=== PATIENT | female | born 1990 | race Caucasian/White ===

== ENCOUNTER 2017-03-31 18:26 | Emergency (ER) | payer OTHER ==
[~2017-03-31] VITALS: Ht 160 cm; Wt 70.0 kg
[~2017-03-31 18:26] MED LIST: AZAT50TA35 PO; CHLO25CA10 PO; PHEN-873 PO; PRED50TA PO; PRED5TAB PO
[2017-03-31 18:54] LABS: BASOPHILS % (AUTO) 0.4 % (0-1); EOSINOPHILS # (AUTO) 0.4 X10'3 (0-0.9); EOSINOPHILS % (AUTO) 3.8 % (0-6); HEMATOCRIT 34.1 % (35.0-45.0); HEMOGLOBIN 11.4 g/dl (12.0-16.0); LYMPHOCYTES # (AUTO) 2.1 X10'3 (1.1-4.8); MEAN CORPUSCULAR HEMOGLOBIN 27.6 PG (27.0-31.0); MEAN CORPUSCULAR HGB CONC 33.5 % (33.0-36.5); MEAN CORPUSCULAR VOLUME 82.6 FL (78-98); MEAN PLATELET VOLUME 7.1 FL (7.4-10.4); MONOCYTES # (AUTO) 0.7 X10'3 (0-0.9); MONOCYTES % (AUTO) 6.8 % (2-12); NEUTROPHILS # (AUTO) 7.2 X10'3 (1.8-7.7); PLATELET COUNT 397 X10'3 (140-440); RED BLOOD COUNT 4.13 X10'6 (4.20-5.60); RED CELL DISTRIBUTION WIDTH 15.4 % (11.5-14.5); WHITE BLOOD COUNT 10.4 X10'3 (4.5-11.0)
[2017-03-31 19:05] LABS: PROTHROMBIN TIME 10.1 SECONDS (9.0-12.0)
[2017-03-31 19:10] LABS: CLARITY,URINE Clear (Clear); COLOR,URINE Dark Yellow (Yellow); GLUCOSE, URINE Negative (Neg); KETONES,URINE Negative (Neg); LEUKOCYTE ESTERASE ,URINE Trace (Neg); NITRITES, URINE Negative (Neg); OCCULT BLOOD,URINE Negative (Neg); PROTEIN,URINE Negative (Neg)
[2017-03-31 19:11] LABS: ALANINE AMINOTRANSFERASE 28 U/L (12-78); ALBUMIN/GLOBULIN RATIO 0.7 (1.1-1.5); ALKALINE PHOSPHATASE 87 IU/L (46-116); ANION GAP 8 (8-16); ASPARTATE AMINO TRANSFERASE 13 U/L (10-37); BILIRUBIN,TOTAL 0.2 MG/DL (0.1-1.0); BLOOD UREA NITROGEN 6 MG/DL (7-18); BUN/CREATININE RATIO 8.6 (6.6-38.0); CALCIUM 8.9 MG/DL (8.5-10.1); CHLORIDE 106 MMOL/L (99-107); GLUCOSE 124 MG/DL (70-104); POTASSIUM 3.4 MMOL/L (3.5-5.1); SODIUM 140 MMOL/L (135-145); TOTAL CARBON DIOXIDE 25.8 MMOL/L (24-32); TOTAL PROTEIN 7.6 G/DL (6.4-8.2); eGFR > 90 ML/MIN
[2017-03-31 19:14] LABS: UA COLLECTION TYPE CLN CATCH MIDSTREAM
[2017-03-31] MEDS ORDERED: metoclopramide 5 mg/ml inj IV ONE (19:20)
[2017-03-31] MEDS ORDERED: normal saline 1000ML IV soln IVB ONE ×2 (19:20)
[2017-03-31] MEDS ORDERED: diphenhydrAMINE 50 mg/ml inj IV ONE (19:20)
[2017-03-31] MEDS ORDERED: glycopyrrolate 0.2mg/ml inj IV ONE (19:20)
[2017-03-31] MEDS ORDERED: LORazepam 2 mg/ml vial IV ONE (19:20)
[2017-03-31 19:27] LABS: BACTERIA,URINE 1+ /HPF (Neg); MUCUS STRANDS MANY /LPF (Neg); RBC,URINE 0-2 /HPF (0-2); SQUAMOUS EPITHELIAL CELL,UR MODERATE /LPF (FEW)
[2017-03-31 19:35] LABS: LIPASE 127 U/L (73-393)
[2017-03-31] MEDS: HYDROmorphone 1 mg/ml syringe IV PRN ×2 (19:39→20:26)
[2017-03-31 20:32] VITALS: BP 110/62
== END 2017-03-31 20:33 | disposition home or self-care (01) ==
LOC: ER 18:27
DX: R10.11 Right upper quadrant pain (principal); F17.210 Nicotine dependence, cigarettes, uncomplicated; Z90.49 Acquired absence of other specified parts of digestive tract; G89.29 Other chronic pain
CPT/HCPCS: 36415; 80053; 81001; 85025; 85610; 87088; 96361; 96374; 96375; 96376; 99285; J1170; J1200; J2060; J2765; J3490; J7030; 83690

== ENCOUNTER 2017-05-21 22:43 | Emergency (ER) | payer BC, OTHER ==
[~2017-05-21] VITALS: Ht 157.5 cm; Wt 68.2 kg
[2017-05-21 23:11] LABS: BASOPHILS # (AUTO) 0.1 X10'3 (0-0.2); BASOPHILS % (AUTO) 0.8 % (0-1); EOSINOPHILS # (AUTO) 0.2 X10'3 (0-0.9); EOSINOPHILS % (AUTO) 2.7 % (0-6); HEMATOCRIT 34.4 % (35.0-45.0); HEMOGLOBIN 11.8 g/dl (12.0-16.0); LYMPHOCYTES # (AUTO) 2.4 X10'3 (1.1-4.8); LYMPHOCYTES % (AUTO) 28.9 % (21-51); MEAN CORPUSCULAR HEMOGLOBIN 27.3 PG (27.0-31.0); MEAN CORPUSCULAR HGB CONC 34.2 % (33.0-36.5); MEAN CORPUSCULAR VOLUME 79.8 FL (78-98); MEAN PLATELET VOLUME 7.3 FL (7.4-10.4); MONOCYTES # (AUTO) 0.9 X10'3 (0-0.9); MONOCYTES % (AUTO) 10.5 % (2-12); NEUTROPHILS # (AUTO) 4.7 X10'3 (1.8-7.7); NEUTROPHILS % (AUTO) 57.1 % (42-75); PLATELET COUNT 323 X10'3 (140-440); RED BLOOD COUNT 4.31 X10'6 (4.20-5.60); RED CELL DISTRIBUTION WIDTH 15.1 % (11.5-14.5); WHITE BLOOD COUNT 8.2 X10'3 (4.5-11.0)
[2017-05-21 23:22] LABS: ALANINE AMINOTRANSFERASE 32 U/L (12-78); ALBUMIN/GLOBULIN RATIO 0.6 (1.1-1.5); ALKALINE PHOSPHATASE 81 IU/L (46-116); AMYLASE 34 U/L (25-115); ANION GAP 10 (8-16); ASPARTATE AMINO TRANSFERASE 16 U/L (10-37); BILIRUBIN,TOTAL 0.1 MG/DL (0.1-1.0); BLOOD UREA NITROGEN 7 MG/DL (7-18); BUN/CREATININE RATIO 9.6 (6.6-38.0); CALCIUM 8.8 MG/DL (8.5-10.1); CHLORIDE 105 MMOL/L (99-107); CREATININE 0.73 MG/DL (0.40-0.90); GLUCOSE 99 MG/DL (70-104); LIPASE 192 U/L (73-393); POTASSIUM 3.6 MMOL/L (3.5-5.1); SODIUM 142 MMOL/L (135-145); TOTAL CARBON DIOXIDE 27.2 MMOL/L (24-32); TOTAL PROTEIN 7.8 G/DL (6.4-8.2); eGFR > 90 ML/MIN
[2017-05-21 23:55] LABS: URINE HCG NEGATIVE (NEG)
[2017-05-21 23:59] LABS: UA COLLECTION TYPE CLN CATCH MIDSTREAM
[2017-05-22] LABS: CLARITY,URINE SLIGHTLY CLOUDY (Clear); COLOR,URINE YELLOW (Yellow); GLUCOSE, URINE NEGATIVE (Neg); KETONES,URINE NEGATIVE (Neg); LEUKOCYTE ESTERASE ,URINE NEGATIVE (Neg); NITRITES, URINE NEGATIVE (Neg); OCCULT BLOOD,URINE TRACE-INTACT (Neg); PH,URINE 5.5 (4.8-8.0); PROTEIN,URINE NEGATIVE (Neg); UROBILINOGEN,URINE 0.2 E.U/dL (0.2-1.0)
[2017-05-22 00:10] LABS: BACTERIA,URINE 1+ /HPF (Neg); MUCUS STRANDS MANY /LPF (Neg); RBC,URINE 0-2 /HPF (0-2); SQUAMOUS EPITHELIAL CELL,UR MANY /LPF (FEW); WBC,URINE 20-30 /HPF (0-4)
[2017-05-22] MEDS ORDERED: morphine 4 MG/ML inj SYRINge IV ONE ×2 (00:40→01:50)
[2017-05-22] MEDS ORDERED: normal saline 1000ML IV soln IVB ONE (00:40)
[2017-05-22] MEDS ORDERED: ondansetron/PF 4mg/2ml inj IV ONE (00:40)
[2017-05-22] MEDS ORDERED: dexamethasone 4mg tablet PO ONE (02:20)
[2017-05-22] MEDS ORDERED: HYDR-3965 PO (02:23)
[2017-05-22] MEDS ORDERED: ONDA4TAB9 PO (02:23)
[2017-05-22] MEDS ORDERED: PRED5TAB PO (02:23)
[2017-05-22 02:44] VITALS: BP 107/61
== END 2017-05-22 02:45 | disposition home or self-care (01) ==
LOC: ER 22:44
DX: R10.13 Epigastric pain (principal); R11.10 Vomiting, unspecified; G89.29 Other chronic pain; Z79.899 Other long term (current) drug therapy
CPT/HCPCS: 36415; 76700; 80053; 81001; 81025; 82150; 83690; 85025; 85610; 96361; 96374; 96375; 99285; J2270; J2405; J7030; 81003

== ENCOUNTER 2017-07-28 23:55 | Emergency (ER) | payer BC ==
[~2017-07-28] VITALS: Ht 157.5 cm; Wt 72.0 kg
[2017-07-29 00:19] VITALS: BP 141/62
== END 2017-07-29 00:59 | disposition home or self-care (01) ==
LOC: ER 23:56
DX: M79.674 Pain in right toe(s) (principal); G89.29 Other chronic pain; Z90.49 Acquired absence of other specified parts of digestive tract; Z91.018 Allergy to other foods; Z79.899 Other long term (current) drug therapy; W23.0XXA Caught, crushed, jammed, or pinched between moving objects, initial encounter; Y93.89 Activity, other specified; Y92.89 Other specified places as the place of occurrence of the external cause; Y99.8 Other external cause status
CPT/HCPCS: 73660; 99284; L3260

== ENCOUNTER 2017-08-18 17:46 | Emergency (ER) | payer BC ==
[~2017-08-18] VITALS: Ht 157.5 cm; Wt 68.8 kg
[2017-08-18 18:47] LABS: BASOPHILS % (AUTO) 0.2 % (0-1); EOSINOPHILS # (AUTO) 0.3 X10'3 (0-0.9); EOSINOPHILS % (AUTO) 1.8 % (0-6); HEMATOCRIT 35.4 % (35.0-45.0); HEMOGLOBIN 11.9 g/dl (12.0-16.0); LYMPHOCYTES # (AUTO) 1.7 X10'3 (1.1-4.8); LYMPHOCYTES % (AUTO) 10.2 % (21-51); MEAN CORPUSCULAR HEMOGLOBIN 26.6 PG (27.0-31.0); MEAN CORPUSCULAR HGB CONC 33.7 % (33.0-36.5); MEAN CORPUSCULAR VOLUME 79.1 FL (78-98); MEAN PLATELET VOLUME 7.2 FL (7.4-10.4); MONOCYTES # (AUTO) 1.2 X10'3 (0-0.9); MONOCYTES % (AUTO) 7.6 % (2-12); NEUTROPHILS # (AUTO) 13.2 X10'3 (1.8-7.7); NEUTROPHILS % (AUTO) 80.2 % (42-75); PLATELET COUNT 442 X10'3 (140-440); RED BLOOD COUNT 4.47 X10'6 (4.20-5.60); RED CELL DISTRIBUTION WIDTH 16.3 % (11.5-14.5); WHITE BLOOD COUNT 16.5 X10'3 (4.5-11.0)
[2017-08-18 18:56] LABS: PROTHROMBIN TIME 10.2 SECONDS (9.0-12.0)
[2017-08-18 19:03] LABS: ALANINE AMINOTRANSFERASE 14 U/L (12-78); ALBUMIN/GLOBULIN RATIO 0.6 (1.1-1.5); ALKALINE PHOSPHATASE 88 IU/L (46-116); ANION GAP 9 (8-16); ASPARTATE AMINO TRANSFERASE 12 U/L (10-37); BILIRUBIN,TOTAL 0.2 MG/DL (0.1-1.0); BLOOD UREA NITROGEN 9 MG/DL (7-18); BUN/CREATININE RATIO 12.9 (6.6-38.0); CHLORIDE 106 MMOL/L (99-107); GLUCOSE 97 MG/DL (70-104); POTASSIUM 3.1 MMOL/L (3.5-5.1); SODIUM 143 MMOL/L (135-145); TOTAL CARBON DIOXIDE 28.2 MMOL/L (24-32); TOTAL PROTEIN 7.8 G/DL (6.4-8.2); eGFR > 90 ML/MIN
[2017-08-18 19:42] LABS: URINE HCG NEGATIVE (NEG)
[2017-08-18 19:48] LABS: CLARITY,URINE CLOUDY (Clear); GLUCOSE, URINE NEGATIVE (Neg); KETONES,URINE TRACE mg/dl (Neg); LEUKOCYTE ESTERASE ,URINE NEGATIVE (Neg); NITRITES, URINE NEGATIVE (Neg); OCCULT BLOOD,URINE NEGATIVE (Neg); PROTEIN,URINE TRACE mg/dl (Neg); UROBILINOGEN,URINE 0.2 E.U/dL (0.2-1.0)
[2017-08-18 19:54] LABS: COLOR,URINE DARK YELLOW (Yellow); UA COLLECTION TYPE CLN CATCH MIDSTREAM
[2017-08-18 19:56] LABS: BACTERIA,URINE 1+ /HPF (Neg); CAL OXALATE CRYSTALS 3+ /HPF (NEGATIVE); MUCUS STRANDS MANY /LPF (Neg); RBC,URINE NONE SEEN /HPF (0-2); SQUAMOUS EPITHELIAL CELL,UR MODERATE /LPF (FEW); WBC CLUMPS,URINE MODERATE /HPF (NEGATIVE)
[2017-08-18] MEDS ORDERED: morphine 4 MG/ML inj SYRINge IV ONE (20:20)
[2017-08-18] MEDS ORDERED: ondansetron/PF 4mg/2ml inj IV ONE (20:20)
[2017-08-18] MEDS ORDERED: methylPREDNISolone sod succ 125mg/2ml vial IV ONE (20:20)
[2017-08-18] MEDS ORDERED: normal saline 1000ML IV soln IVB ONE (20:20)
[2017-08-18 20:39] LABS: LIPASE 98 U/L (73-393)
[2017-08-18] MEDS ORDERED: iohexol 300mg/ml 100ml inj. ONE (20:49)
[2017-08-18] MEDS ORDERED: fentaNYL/PF 50MCG/1 ML 2ML syringe IV ONE (21:15)
[2017-08-18] MEDS ORDERED: potassium Cl 20 mEq SR tablet PO STA (21:55)
[2017-08-18] MEDS ORDERED: ciprofloxacin 250mg tablet PO ONE (22:00)
[2017-08-18] MEDS ORDERED: HYDROcodone/acetaminophen 10/325mg tab PO ONE (22:00)
[2017-08-18] MEDS ORDERED: metroNIDAZOLE 500mg tablet PO ONE (22:00)
[2017-08-18] MEDS ORDERED: HYDR-3965 PO (22:01)
[2017-08-18] MEDS ORDERED: CIPR-259 PO (22:01)
[2017-08-18] MEDS ORDERED: POTA20TA19 PO (22:01)
[2017-08-18] MEDS ORDERED: METR500T PO (22:01)
[2017-08-18 22:12] VITALS: BP 107/70
== END 2017-08-18 22:40 | disposition home or self-care (01) ==
LOC: ER 17:46
DX: E87.6 Hypokalemia (principal); K52.9 Noninfective gastroenteritis and colitis, unspecified; N39.0 Urinary tract infection, site not specified; F17.200 Nicotine dependence, unspecified, uncomplicated; G89.29 Other chronic pain; Z90.49 Acquired absence of other specified parts of digestive tract; Z79.899 Other long term (current) drug therapy
CPT/HCPCS: 36415; 74176; 80053; 81001; 81025; 83690; 85025; 85610; 85651; 87088; 96361; 96374; 96375; 99285; J2405; J2930; J3010; J3490; J7030; Q9967

== ENCOUNTER 2017-10-02 19:30 | Inpatient (IN) | payer BC ==
[~2017-10-02] VITALS: Ht 157.5 cm; Wt 67.0 kg
[2017-10-02 21:27] LABS: BASOPHILS % (AUTO) 0.3 % (0-1); EOSINOPHILS # (AUTO) 0.2 X10'3 (0-0.9); EOSINOPHILS % (AUTO) 2.1 % (0-6); HEMATOCRIT 34.8 % (35.0-45.0); HEMOGLOBIN 11.7 g/dl (12.0-16.0); LYMPHOCYTES # (AUTO) 1.2 X10'3 (1.1-4.8); LYMPHOCYTES % (AUTO) 10.6 % (21-51); MEAN CORPUSCULAR HEMOGLOBIN 26.6 PG (27.0-31.0); MEAN CORPUSCULAR HGB CONC 33.7 % (33.0-36.5); MEAN PLATELET VOLUME 7.1 FL (7.4-10.4); MONOCYTES # (AUTO) 0.7 X10'3 (0-0.9); MONOCYTES % (AUTO) 6.2 % (2-12); NEUTROPHILS # (AUTO) 9.3 X10'3 (1.8-7.7); NEUTROPHILS % (AUTO) 80.8 % (42-75); PLATELET COUNT 398 X10'3 (140-440); RED BLOOD COUNT 4.41 X10'6 (4.20-5.60); RED CELL DISTRIBUTION WIDTH 15.1 % (11.5-14.5); WHITE BLOOD COUNT 11.5 X10'3 (4.5-11.0)
[2017-10-02] MEDS ORDERED: normal saline 1000ml 1,000 ML IV ONE (21:40)
[2017-10-02] MEDS ORDERED: ondansetron/PF 4mg/2ml inj IV ONE (21:40)
[2017-10-02 21:45] LABS: ALANINE AMINOTRANSFERASE 20 U/L (12-78); ALBUMIN/GLOBULIN RATIO 0.6 (1.1-1.5); ALKALINE PHOSPHATASE 75 IU/L (46-116); ANION GAP 10 (8-16); ASPARTATE AMINO TRANSFERASE 10 U/L (10-37); BILIRUBIN,TOTAL 0.2 MG/DL (0.1-1.0); BLOOD UREA NITROGEN 5 MG/DL (7-18); BUN/CREATININE RATIO 7.8 (6.6-38.0); CALCIUM 8.6 MG/DL (8.5-10.1); CHLORIDE 107 MMOL/L (99-107); CREATININE 0.64 MG/DL (0.40-0.90); GLUCOSE 89 MG/DL (70-104); SODIUM 143 MMOL/L (135-145); TOTAL CARBON DIOXIDE 25.9 MMOL/L (24-32); TOTAL PROTEIN 7.9 G/DL (6.4-8.2); eGFR > 90 ML/MIN
[2017-10-02 21:48] LABS: POTASSIUM 2.9 MMOL/L (3.5-5.1)
[2017-10-02 21:52] LABS: URINE HCG NEGATIVE (NEG)
[2017-10-02] MEDS ORDERED: Potassium Cl inj 40 MEQ in normal saline 250ml IV soln 230 ML IV ONE (21:55)
[2017-10-02] MEDS ORDERED: morphine 2 MG/ML inj. syringe IV ONE (21:55)
[2017-10-02] MEDS ORDERED: Potassium Cl 40 MEQ in NS 500 ML IV ONE (22:00)
[2017-10-02 22:38] LABS: CLARITY,URINE CLOUDY (Clear); COLOR,URINE YELLOW (Yellow); GLUCOSE, URINE NEGATIVE (Neg); KETONES,URINE NEGATIVE (Neg); LEUKOCYTE ESTERASE ,URINE NEGATIVE (Neg); NITRITES, URINE NEGATIVE (Neg); OCCULT BLOOD,URINE SMALL (Neg); PH,URINE 5.5 (4.8-8.0); PROTEIN,URINE TRACE mg/dl (Neg); UROBILINOGEN,URINE 0.2 E.U/dL (0.2-1.0)
[2017-10-02 22:49] LABS: UA COLLECTION TYPE NON-SPECIFIED
[2017-10-02 22:50] LABS: AMORPHOUS URATES 4+; BACTERIA,URINE FEW /HPF (Neg); RBC,URINE 0-2 /HPF (0-2); SQUAMOUS EPITHELIAL CELL,UR FEW /LPF (FEW); WBC,URINE NONE SEEN /HPF (0-4)
[2017-10-03] MEDS ORDERED: LACT1CAP65 PO (00:03)
[2017-10-03] MEDS ORDERED: ketorolac trometh. 30mg/ml inj. IV ONE (00:10)
[2017-10-03] MEDS ORDERED: magnesium hydroxide 30ml (MOM) UD suspension PO PRN (00:30)
[2017-10-03] MEDS ORDERED: diphenhydrAMINE 50 mg/ml inj IV PRN (00:30)
[2017-10-03] MEDS ORDERED: mag hydrox/Alum hydrox/simeth 30ml oral suspension PO PRN (00:30)
[2017-10-03] MEDS ORDERED: bisacodyl 10mg suppository rectal RC PRN (00:30)
[2017-10-03] MEDS ORDERED: acetaminophen 650mg rectal suppository RC PRN (00:30)
[2017-10-03] MEDS ORDERED: ondansetron/PF 4mg/2ml inj IV PRN (00:30)
[2017-10-03] MEDS ORDERED: acetaminophen 325mg tablet PO PRN ×2 (00:30)
[2017-10-03] MEDS ORDERED: morphine 4 MG/ML inj SYRINge IV PRN ×2 (00:30)
[2017-10-03] MEDS ORDERED: metoclopramide 5 mg/ml inj IV PRN (00:30)
[2017-10-03] MEDS ORDERED: diphenhydrAMINE 25mg capsule PO PRN (00:30)
[2017-10-03] MEDS ORDERED: HYDROmorphone inj. 0.5 MG/0.5 ML DISP.SYRIN IV PRN ×2 (00:30)
[2017-10-03] MEDS ORDERED: HYDROcodone/acetaminophen 5mg/325mg tablet PO PRN (00:30)
[2017-10-03] MEDS ORDERED: potassium Cl 40MEQ/NS 500ml 500 ML IV PRN ×4 (00:35→15:25)
[2017-10-03] MEDS ORDERED: potassium Cl 20 mEq SR tablet PO PRN ×4 (00:35→15:25)
[2017-10-03] MEDS ORDERED: normal saline 1000ml 1,000 ML IVB ONE (00:35)
[2017-10-03] MEDS ORDERED: proCHLORperazine 10 MG/2 ml inj IV PRN (00:35)
[2017-10-03] MEDS: hydrocortisone sod succ/PF 100mg/2ml inj. IV SCH ×3 (02:04→13:16)
[2017-10-03] MEDS: HYDROcodone/acetaminophen 10/325mg tab PO PRN ×4 (02:04→18:56)
[2017-10-03] MEDS: potassium Cl 20mEq in NS 1,000 ML IV SCH ×3 (02:48→13:16)
[2017-10-03 07:10] VITALS: BP 93/53
[2017-10-03] MEDS: lactobacillus rhamnosus 10,000 MMU CELLS/CAPSULE PO SCH ×2 (07:21→16:43)
[2017-10-03] MEDS ORDERED: docusate sod 100mg capsule PO SCH (08:00)
[2017-10-03] MEDS ORDERED: pantoprazole 40 MG vial IV SCH (08:00)
[2017-10-03] MEDS ORDERED: heparin, porcine 5000 units/ml vial SQ SCH (08:00)
[2017-10-03 08:24] LABS: MAGNESIUM 1.4 MG/DL (1.5-2.4); PHOSPHORUS 1.6 MG/DL (2.3-4.5); POTASSIUM 3.6 MMOL/L (3.5-5.1)
[2017-10-03 08:46] LABS: OCCULT BLOOD STOOL NEGATIVE (Neg)
[2017-10-03] MEDS: traMADol 50MG tablet PO PRN ×2 (09:16→16:45)
[2017-10-03 10:20] LABS: C DIFF ANTIGEN NEGATIVE (NEGATIVE); C DIFF SPECIMEN=DIARRHEA? ACCEPTABLE; C DIFFICILE TOXINS A&B NEGATIVE (Neg)
[2017-10-03 11:45] VITALS: BP_SYST 119; BP_SYST 144; BP_DIAS 65; BP_DIAS 99
[2017-10-03] MEDS ORDERED: magnesium Cl slow-release 64mg tablet PO PRN (15:25)
[2017-10-03] MEDS ORDERED: magnesium 1gm/100ml D5W IVPB 100 ML IV PRN (15:25)
[2017-10-03] MEDS ORDERED: magnesium 4gm in 100ml NS 100 ML IV PRN (15:25)
[2017-10-03 16:58] LABS: MAGNESIUM 1.3 MG/DL (1.5-2.4); POTASSIUM 3.7 MMOL/L (3.5-5.1)
[2017-10-03] MEDS ORDERED: PRED10TA23 PO (18:20)
[2017-10-03] MEDS ORDERED: HYDR-3972 PO (18:20)
[2017-10-03] MEDS ORDERED: temazepam 15mg capsule PO PRN (21:00)
== END 2017-10-03 19:06 | disposition home or self-care (01) | DRG 386 ==
LOC: ER 19:31 → ED HOLD 10-03 00:28 → SUR 3N 10-03 01:15
PROVIDERS: ADMIT Family Medicine; ATTEND Family Medicine
DX: K50.90 Crohn's disease, unspecified, without complications (principal); N82.3 Fistula of vagina to large intestine; E86.1 Hypovolemia; E87.6 Hypokalemia; F17.210 Nicotine dependence, cigarettes, uncomplicated; G89.29 Other chronic pain; Z90.49 Acquired absence of other specified parts of digestive tract; Z88.8 Allergy status to other drugs, medicaments and biological substances
CPT/HCPCS: 36415; 80053; 81001; 81025; 82272; 83690; 83735; 83880; 84100; 84132; 85025; 87045; 87046; 87070; 87324; 87449; 89055; 96365; 96366; 96375; 99285; C9113; J1644; J1720; J1885; J2270; J2405; J3480; J7030; J7500

== ENCOUNTER 2018-01-14 20:10 | Emergency (ER) | payer BC, OTHER ==
[~2018-01-14] VITALS: Ht 157.5 cm; Wt 64.0 kg
[~2018-01-14 20:10] MED LIST changes: -CHLO25CA10 PO; +HYDR-3972 PO; +LACT1CAP65 PO; -PHEN-873 PO; -PRED50TA PO; -PRED5TAB PO
[2018-01-14 20:53] LABS: BASOPHILS # (AUTO) 0.1 X10'3 (0-0.2); BASOPHILS % (AUTO) 0.6 % (0-1); EOSINOPHILS # (AUTO) 0.3 X10'3 (0-0.9); EOSINOPHILS % (AUTO) 3.2 % (0-6); HEMATOCRIT 36.7 % (35.0-45.0); HEMOGLOBIN 12.1 g/dl (12.0-16.0); LYMPHOCYTES # (AUTO) 1.2 X10'3 (1.1-4.8); LYMPHOCYTES % (AUTO) 13.1 % (21-51); MEAN CORPUSCULAR HEMOGLOBIN 26.4 PG (27.0-31.0); MEAN CORPUSCULAR VOLUME 79.9 FL (78-98); MEAN PLATELET VOLUME 6.9 FL (7.4-10.4); MONOCYTES # (AUTO) 0.7 X10'3 (0-0.9); MONOCYTES % (AUTO) 7.9 % (2-12); NEUTROPHILS # (AUTO) 6.8 X10'3 (1.8-7.7); NEUTROPHILS % (AUTO) 75.2 % (42-75); PLATELET COUNT 433 X10'3 (140-440); RED BLOOD COUNT 4.59 X10'6 (4.20-5.60); RED CELL DISTRIBUTION WIDTH 16.8 % (11.5-14.5)
[2018-01-14 21:18] LABS: ALANINE AMINOTRANSFERASE 20 U/L (12-78); ALBUMIN/GLOBULIN RATIO 0.7 (1.1-1.5); ALKALINE PHOSPHATASE 81 IU/L (46-116); AMYLASE 32 U/L (25-115); ANION GAP 9 (8-16); ASPARTATE AMINO TRANSFERASE 14 U/L (10-37); BILIRUBIN,TOTAL 0.2 MG/DL (0.1-1.0); BLOOD UREA NITROGEN 10 MG/DL (7-18); BUN/CREATININE RATIO 15.4 (6.6-38.0); CALCIUM 8.6 MG/DL (8.5-10.1); CHLORIDE 105 MMOL/L (99-107); CREATININE 0.65 MG/DL (0.40-0.90); GLUCOSE 98 MG/DL (70-104); LIPASE 129 U/L (73-393); SODIUM 143 MMOL/L (135-145); TOTAL CARBON DIOXIDE 28.6 MMOL/L (24-32); TOTAL PROTEIN 7.5 G/DL (6.4-8.2); eGFR > 90 ML/MIN
[2018-01-14 21:22] LABS: CLARITY,URINE CLEAR (Clear); COLOR,URINE YELLOW (Yellow); GLUCOSE, URINE NEGATIVE (Neg); KETONES,URINE NEGATIVE (Neg); LEUKOCYTE ESTERASE ,URINE NEGATIVE (Neg); NITRITES, URINE NEGATIVE (Neg); OCCULT BLOOD,URINE TRACE-INTACT (Neg); PH,URINE 5.5 (4.8-8.0); PROTEIN,URINE NEGATIVE (Neg); UROBILINOGEN,URINE 0.2 E.U/dL (0.2-1.0)
[2018-01-14 21:23] LABS: PROTHROMBIN TIME 9.9 SECONDS (9.0-12.0)
[2018-01-14 21:23] LABS: URINE HCG NEGATIVE (NEG)
[2018-01-14 21:32] LABS: UA COLLECTION TYPE CLN CATCH MIDSTREAM
[2018-01-14 21:34] LABS: BACTERIA,URINE 1+ /HPF (Neg); MUCUS STRANDS MANY /LPF (Neg); RBC,URINE 0-2 /HPF (0-2); SQUAMOUS EPITHELIAL CELL,UR MANY /LPF (FEW); WBC,URINE 0-4 /HPF (0-4)
[2018-01-14 21:36] LABS: AMORPHOUS URATES 1+; CAL OXALATE CRYSTALS 1+ /HPF (NEGATIVE)
[2018-01-14 21:39] LABS: POTASSIUM 2.7 MMOL/L (3.5-5.1)
[2018-01-14] MEDS ORDERED: potassium Cl 10 mEq/100mL bag IV ONE (21:45)
[2018-01-14] MEDS ORDERED: normal saline 1000ml 1,000 ML IV ONE (21:45)
[2018-01-14] MEDS ORDERED: morphine 4 MG/ML inj SYRINge IV ONE (21:45)
[2018-01-14] MEDS ORDERED: ondansetron/PF 4mg/2ml inj IV ONE (21:45)
[2018-01-14] MEDS ORDERED: potassium Cl 20 mEq SR tablet PO ONE (21:45)
[2018-01-14] MEDS ORDERED: potassium 10mEq/100ml NS w/LIDOcaine (10mg/bag) IV ONE (22:10)
[2018-01-14 22:26] VITALS: BP 129/74
[2018-01-14] MEDS ORDERED: methylPREDNISolone sod succ 125mg/2ml vial IV ONE (22:50)
[2018-01-14] MEDS ORDERED: METH4TAB81 PO (22:51)
[2018-01-14] MEDS ORDERED: HYDR-4383 PO (22:51)
[2018-01-14] MEDS ORDERED: ONDA4TAB9 PO (22:51)
== END 2018-01-14 23:12 | disposition home or self-care (01) ==
LOC: ER 20:11
DX: E87.6 Hypokalemia (principal); K50.90 Crohn's disease, unspecified, without complications; R11.10 Vomiting, unspecified; R19.7 Diarrhea, unspecified; G89.29 Other chronic pain; R10.31 Right lower quadrant pain; F17.200 Nicotine dependence, unspecified, uncomplicated; Z90.49 Acquired absence of other specified parts of digestive tract; Z98.890 Other specified postprocedural states; Z91.018 Allergy to other foods; Z79.899 Other long term (current) drug therapy
CPT/HCPCS: 36415; 80053; 81001; 81025; 82150; 83690; 85025; 85610; 85651; 96365; 96375; 99284; J2270; J2405; J2930; J3480; J7030

== ENCOUNTER 2018-02-08 16:41 | Emergency (ER) | payer BC, OTHER ==
[~2018-02-08] VITALS: Ht 160 cm; Wt 68.2 kg
[~2018-02-08 16:41] MED LIST changes: +HYDR-4383 PO; +METH4TAB81 PO; +ONDA4TAB9 PO
[2018-02-08 17:52] LABS: URINE HCG NEGATIVE (NEG)
[2018-02-08 18:04] LABS: URINE AMPHETAMINE SCREEN NEGATIVE (Neg); URINE BARBITUATE SCREEN NEGATIVE (Neg); URINE BENZODIAZEPINES SCREEN POSITIVE (Neg); URINE CANNABINOID SCREEN POSITIVE (Neg); URINE COCAINE SCREEN NEGATIVE (Neg); URINE METHADONE SCREEN NEGATIVE (Neg); URINE OPIATE SCREEN NEGATIVE (Neg); URINE PHENCYCLIDINE SCREEN NEGATIVE (Neg)
[2018-02-08 18:12] LABS: BASOPHILS % (AUTO) 0.4 % (0-1); EOSINOPHILS # (AUTO) 0.4 X10'3 (0-0.9); EOSINOPHILS % (AUTO) 3.6 % (0-6); HEMATOCRIT 37.4 % (35.0-45.0); HEMOGLOBIN 12.3 g/dl (12.0-16.0); LYMPHOCYTES # (AUTO) 1.3 X10'3 (1.1-4.8); MEAN CORPUSCULAR HEMOGLOBIN 26.4 PG (27.0-31.0); MEAN CORPUSCULAR HGB CONC 32.8 % (33.0-36.5); MEAN CORPUSCULAR VOLUME 80.4 FL (78-98); MEAN PLATELET VOLUME 7.5 FL (7.4-10.4); MONOCYTES # (AUTO) 0.7 X10'3 (0-0.9); MONOCYTES % (AUTO) 5.9 % (2-12); NEUTROPHILS # (AUTO) 8.7 X10'3 (1.8-7.7); NEUTROPHILS % (AUTO) 78.1 % (42-75); PLATELET COUNT 451 X10'3 (140-440); RED BLOOD COUNT 4.65 X10'6 (4.20-5.60); RED CELL DISTRIBUTION WIDTH 15.7 % (11.5-14.5); WHITE BLOOD COUNT 11.1 X10'3 (4.5-11.0)
[2018-02-08 18:32] LABS: ALANINE AMINOTRANSFERASE 30 U/L (12-78); ALBUMIN 3.3 G/DL (3.4-5.0); ALBUMIN/GLOBULIN RATIO 0.7 (1.1-1.5); ALKALINE PHOSPHATASE 79 IU/L (46-116); ANION GAP 8 (8-16); ASPARTATE AMINO TRANSFERASE 15 U/L (10-37); BILIRUBIN,TOTAL 0.2 MG/DL (0.1-1.0); BLOOD UREA NITROGEN 10 MG/DL (7-18); BUN/CREATININE RATIO 14.3 (6.6-38.0); CALCIUM 9.1 MG/DL (8.5-10.1); CHLORIDE 103 MMOL/L (99-107); ETHANOL < 0.010 GM/DL (0.0-0.010); GLUCOSE 108 MG/DL (70-104); SODIUM 140 MMOL/L (135-145); TOTAL PROTEIN 7.9 G/DL (6.4-8.2); eGFR > 90 ML/MIN
[2018-02-08 18:35] LABS: ACETAMINOPHEN < 2.0 UG/ML (10-30); POTASSIUM 2.7 MMOL/L (3.5-5.1)
[2018-02-08] MEDS ORDERED: potassium Cl 20 mEq SR tablet PO STA (18:36)
[2018-02-08] MEDS ORDERED: ondansetron 4mg rapidly disintigrating tab PO ONE (18:40)
[2018-02-08] MEDS ORDERED: TRAM50TA2 PO (20:04)
[2018-02-08] MEDS ORDERED: AZAT50TA35 PO (20:04)
[2018-02-08 20:14] VITALS: BP 104/73
== END 2018-02-08 20:16 | disposition home or self-care (01) ==
LOC: ER 16:42
DX: T14.91XA Suicide attempt, initial encounter (principal); F32.9 Major depressive disorder, single episode, unspecified; K50.90 Crohn's disease, unspecified, without complications; F10.20 Alcohol dependence, uncomplicated; G89.29 Other chronic pain; Z91.018 Allergy to other foods; Z79.899 Other long term (current) drug therapy; Z90.49 Acquired absence of other specified parts of digestive tract; Z98.890 Other specified postprocedural states; X78.8XXA Intentional self-harm by other sharp object, initial encounter; Y93.89 Activity, other specified; Y92.89 Other specified places as the place of occurrence of the external cause; Y99.8 Other external cause status; Y90.9 Presence of alcohol in blood, level not specified
CPT/HCPCS: 36415; 80053; 80305; 80320; 80329; 81025; 85025; 99284

== ENCOUNTER 2018-03-02 20:51 | Emergency (ER) | payer BC ==
[~2018-03-02] VITALS: Ht 157.5 cm; Wt 68.1 kg
[~2018-03-02 20:51] MED LIST changes: -ONDA4TAB9 PO; +TRAM50TA2 PO
[2018-03-02 21:53] LABS: CLARITY,URINE CLEAR (Clear); COLOR,URINE YELLOW (Yellow); GLUCOSE, URINE NEGATIVE (Neg); KETONES,URINE NEGATIVE (Neg); LEUKOCYTE ESTERASE ,URINE NEGATIVE (Neg); NITRITES, URINE NEGATIVE (Neg); OCCULT BLOOD,URINE TRACE-LYSED (Neg); PH,URINE 5.5 (4.8-8.0); PROTEIN,URINE NEGATIVE (Neg); UROBILINOGEN,URINE 0.2 E.U/dL (0.2-1.0)
[2018-03-02 21:54] LABS: URINE HCG NEGATIVE (NEG)
[2018-03-02 22:02] LABS: UA COLLECTION TYPE CLN CATCH MIDSTREAM
[2018-03-02 22:05] LABS: BACTERIA,URINE 2+ /HPF (Neg); MUCUS STRANDS MANY /LPF (Neg); RBC,URINE 0-2 /HPF (0-2)
[2018-03-02 22:06] LABS: SQUAMOUS EPITHELIAL CELL,UR MANY /LPF (FEW); WBC,URINE 0-4 /HPF (0-4)
[2018-03-02 22:13] LABS: BASOPHILS # (AUTO) 0.1 X10'3 (0-0.2); BASOPHILS % (AUTO) 0.5 % (0-1); EOSINOPHILS # (AUTO) 0.4 X10'3 (0-0.9); EOSINOPHILS % (AUTO) 3.2 % (0-6); HEMATOCRIT 34.3 % (35.0-45.0); HEMOGLOBIN 11.4 g/dl (12.0-16.0); LYMPHOCYTES # (AUTO) 1.3 X10'3 (1.1-4.8); LYMPHOCYTES % (AUTO) 10.6 % (21-51); MEAN CORPUSCULAR HEMOGLOBIN 26.8 PG (27.0-31.0); MEAN CORPUSCULAR HGB CONC 33.3 % (33.0-36.5); MEAN CORPUSCULAR VOLUME 80.6 FL (78-98); MONOCYTES # (AUTO) 0.7 X10'3 (0-0.9); MONOCYTES % (AUTO) 5.5 % (2-12); NEUTROPHILS # (AUTO) 9.8 X10'3 (1.8-7.7); NEUTROPHILS % (AUTO) 80.2 % (42-75); PLATELET COUNT 435 X10'3 (140-440); RED BLOOD COUNT 4.26 X10'6 (4.20-5.60); RED CELL DISTRIBUTION WIDTH 15.8 % (11.5-14.5); WHITE BLOOD COUNT 12.2 X10'3 (4.5-11.0)
[2018-03-02 22:26] LABS: PROTHROMBIN TIME 10.2 SECONDS (9.0-12.0)
[2018-03-02 22:28] LABS: ALANINE AMINOTRANSFERASE 24 U/L (12-78); ALBUMIN 3.2 G/DL (3.4-5.0); ALBUMIN/GLOBULIN RATIO 0.7 (1.1-1.5); ALKALINE PHOSPHATASE 81 IU/L (46-116); ANION GAP 13 (8-16); ASPARTATE AMINO TRANSFERASE 12 U/L (10-37); BILIRUBIN,TOTAL 0.2 MG/DL (0.1-1.0); BLOOD UREA NITROGEN 9 MG/DL (7-18); BUN/CREATININE RATIO 13.6 (6.6-38.0); CALCIUM 8.7 MG/DL (8.5-10.1); CHLORIDE 102 MMOL/L (99-107); CREATININE 0.66 MG/DL (0.40-0.90); GLUCOSE 88 MG/DL (70-104); LIPASE 323 U/L (73-393); POTASSIUM 3.2 MMOL/L (3.5-5.1); SODIUM 139 MMOL/L (135-145); TOTAL CARBON DIOXIDE 24.3 MMOL/L (24-32); TOTAL PROTEIN 7.8 G/DL (6.4-8.2); eGFR > 90 ML/MIN
[2018-03-02] MEDS ORDERED: ondansetron 4mg rapidly disintigrating tab PO ONE (22:50)
[2018-03-02] MEDS ORDERED: ketorolac trometh inj. 60 MG/2 ML VIAL IM ONE (22:50)
[2018-03-03] MEDS ORDERED: TRAM50TA2 PO (00:23)
[2018-03-03] MEDS ORDERED: HYDROcodone/acetaminophen 5mg/325mg tablet PO ONE (00:25)
[2018-03-03 00:43] VITALS: BP 108/69
== END 2018-03-03 00:57 | disposition home or self-care (01) ==
LOC: ER 20:52
DX: K52.89 Other specified noninfective gastroenteritis and colitis (principal); N83.202 Unspecified ovarian cyst, left side; R10.12 Left upper quadrant pain; R10.32 Left lower quadrant pain; G89.29 Other chronic pain; Z90.49 Acquired absence of other specified parts of digestive tract; Z98.890 Other specified postprocedural states; Z91.018 Allergy to other foods; Z79.899 Other long term (current) drug therapy
CPT/HCPCS: 36415; 74176; 80053; 81001; 81025; 83690; 85025; 85610; 96372; 99284; J1885

== ENCOUNTER 2018-07-23 13:10 | Emergency (ER) | payer BC, OTHER ==
[~2018-07-23] VITALS: Ht 158.8 cm; Wt 68.0 kg
[~2018-07-23 13:10] MED LIST changes: -TRAM50TA2 PO
[2018-07-23 14:24] LABS: BASOPHILS % (AUTO) 0.4 % (0-1); EOSINOPHILS # (AUTO) 0.2 X10'3 (0-0.9); EOSINOPHILS % (AUTO) 1.8 % (0-6); HEMATOCRIT 36.4 % (35.0-45.0); HEMOGLOBIN 12.3 g/dl (12.0-16.0); LYMPHOCYTES # (AUTO) 1.3 X10'3 (1.1-4.8); MEAN CORPUSCULAR HEMOGLOBIN 28.8 PG (27.0-31.0); MEAN CORPUSCULAR HGB CONC 33.9 g/dL (33.0-36.5); MEAN CORPUSCULAR VOLUME 84.9 FL (78-98); MEAN PLATELET VOLUME 7.1 FL (7.4-10.4); MONOCYTES # (AUTO) 0.9 X10'3 (0-0.9); MONOCYTES % (AUTO) 7.7 % (2-12); NEUTROPHILS # (AUTO) 8.6 X10'3 (1.8-7.7); NEUTROPHILS % (AUTO) 78.1 % (42-75); PLATELET COUNT 387 X10'3 (140-440); RED BLOOD COUNT 4.29 X10'6 (4.20-5.60); RED CELL DISTRIBUTION WIDTH 13.6 % (11.5-14.5)
[2018-07-23] MEDS ORDERED: ondansetron/PF 4mg/2ml inj IV ONE (14:25)
[2018-07-23] MEDS ORDERED: normal saline 1000ML IV soln IVB ONE (14:25)
[2018-07-23 14:29] LABS: ALANINE AMINOTRANSFERASE 21 U/L (12-78); ALBUMIN 3.3 G/DL (3.4-5.0); ALBUMIN/GLOBULIN RATIO 0.7 (1.1-1.5); ALKALINE PHOSPHATASE 75 IU/L (46-116); ANION GAP 7 (8-16); ASPARTATE AMINO TRANSFERASE 10 U/L (10-37); BILIRUBIN,TOTAL 0.3 MG/DL (0.1-1.0); BLOOD UREA NITROGEN 8 MG/DL (7-18); BUN/CREATININE RATIO 11.4 (6.6-38.0); CALCIUM 9.5 MG/DL (8.5-10.1); CHLORIDE 104 MMOL/L (99-107); GLUCOSE 92 MG/DL (70-104); INR 1.1 INR; SODIUM 139 MMOL/L (135-145); TOTAL CARBON DIOXIDE 28.5 MMOL/L (24-32); TOTAL PROTEIN 7.9 G/DL (6.4-8.2); eGFR > 90 ML/MIN
[2018-07-23 14:39] LABS: POTASSIUM 2.7 MMOL/L (3.5-5.1)
[2018-07-23 14:44] LABS: CLARITY,URINE CLOUDY (Clear); COLOR,URINE YELLOW (Yellow); GLUCOSE, URINE NEGATIVE (Neg); KETONES,URINE NEGATIVE (Neg); LEUKOCYTE ESTERASE ,URINE NEGATIVE (Neg); NITRITES, URINE NEGATIVE (Neg); OCCULT BLOOD,URINE NEGATIVE (Neg); PROTEIN,URINE TRACE mg/dl (Neg); UROBILINOGEN,URINE 0.2 E.U/dL (0.2-1.0)
[2018-07-23 14:45] LABS: UA COLLECTION TYPE CLN CATCH MIDSTREAM; URINE HCG NEGATIVE (NEG)
[2018-07-23] MEDS ORDERED: potassium Cl 20 mEq SR tablet PO ONE (14:45)
[2018-07-23 14:50] LABS: MUCUS STRANDS MANY /LPF (Neg); SQUAMOUS EPITHELIAL CELL,UR MANY /LPF (FEW)
[2018-07-23 14:52] LABS: BACTERIA,URINE 2+ /HPF (Neg)
[2018-07-23 14:54] LABS: RBC,URINE 0-2 /HPF (0-2); WBC,URINE 0-4 /HPF (0-4)
[2018-07-23] MEDS: potassium 10mEq/100ml NS w/LIDOcaine (10mg/bag) IV SCH ×2 (15:05→16:12)
[2018-07-23 15:08] LABS: LIPASE 97 U/L (73-393)
--- NOTE | 2018-07-23 15:13 | NUR ---
critical labs called at 1445 from [facility] in [facility] for K of 2.7, Dr. watt notifyed at the time
[2018-07-23 15:18] LABS: MAGNESIUM 1.8 MG/DL (1.5-2.4)
[2018-07-23] MEDS ORDERED: acetaminophen 1,000mg/100ml IV 100 ML IV STA (15:28)
[2018-07-23] MEDS ORDERED: ONDA8TAB6 PO (16:02)
[2018-07-23 16:49] VITALS: BP 98/61
== END 2018-07-23 17:07 | disposition home or self-care (01) ==
LOC: ER 13:11
DX: R10.84 Generalized abdominal pain (principal); R10.31 Right lower quadrant pain; R11.10 Vomiting, unspecified; G89.29 Other chronic pain; F17.200 Nicotine dependence, unspecified, uncomplicated; Z90.49 Acquired absence of other specified parts of digestive tract; Z98.890 Other specified postprocedural states; Z91.018 Allergy to other foods; Z79.899 Other long term (current) drug therapy
CPT/HCPCS: 36415; 80053; 81001; 81025; 83690; 83735; 85025; 85610; 85651; 86140; 96361; 96365; 96375; 99283; J0131; J2405; J3480; J7030

== ENCOUNTER 2018-11-19 12:43 | Emergency (ER) | payer BC ==
[~2018-11-19] VITALS: Ht 160 cm; Wt 70.5 kg
[~2018-11-19 12:43] MED LIST changes: +ONDA8TAB6 PO
[2018-11-19] MEDS ORDERED: ketorolac trometh. 30mg/ml inj. IV ONE (13:10)
[2018-11-19] MEDS ORDERED: normal saline 1000ml 1,000 ML IV ONE (13:10)
[2018-11-19] MEDS ORDERED: ondansetron/PF 4mg/2ml inj IV ONE (13:10)
[2018-11-19 13:21] LABS: BASOPHILS # (AUTO) 0.1 X10'3 (0-0.2); BASOPHILS % (AUTO) 0.7 % (0-1); EOSINOPHILS # (AUTO) 0.1 X10'3 (0-0.9); EOSINOPHILS % (AUTO) 0.6 % (0-6); HEMATOCRIT 42.4 % (35.0-45.0); HEMOGLOBIN 14.1 g/dl (12.0-16.0); LYMPHOCYTES # (AUTO) 1.4 X10'3 (1.1-4.8); LYMPHOCYTES % (AUTO) 10.8 % (21-51); MEAN CORPUSCULAR HEMOGLOBIN 28.2 PG (27.0-31.0); MEAN CORPUSCULAR HGB CONC 33.3 g/dL (33.0-36.5); MEAN CORPUSCULAR VOLUME 84.6 FL (78-98); MEAN PLATELET VOLUME 6.6 FL (7.4-10.4); MONOCYTES # (AUTO) 0.9 X10'3 (0-0.9); MONOCYTES % (AUTO) 7.4 % (2-12); NEUTROPHILS # (AUTO) 10.2 X10'3 (1.8-7.7); NEUTROPHILS % (AUTO) 80.5 % (42-75); PLATELET COUNT 422 X10'3 (140-440); RED BLOOD COUNT 5.01 X10'6 (4.20-5.60); RED CELL DISTRIBUTION WIDTH 15.3 % (11.5-14.5); WHITE BLOOD COUNT 12.6 X10'3 (4.5-11.0)
[2018-11-19 13:33] LABS: ALANINE AMINOTRANSFERASE 52 U/L (12-78); ALBUMIN 3.7 G/DL (3.4-5.0); ALBUMIN/GLOBULIN RATIO 0.8 (1.1-1.5); ALKALINE PHOSPHATASE 84 IU/L (46-116); ANION GAP 12 (8-16); ASPARTATE AMINO TRANSFERASE 28 U/L (10-37); BILIRUBIN,TOTAL 0.2 MG/DL (0.1-1.0); CALCIUM 8.6 MG/DL (8.5-10.1); CHLORIDE 107 MMOL/L (99-107); GLUCOSE 92 MG/DL (70-104); LIPASE 73 U/L (73-393); SODIUM 144 MMOL/L (135-145); TOTAL CARBON DIOXIDE 24.8 MMOL/L (24-32); TOTAL PROTEIN 8.6 G/DL (6.4-8.2)
--- NOTE | 2018-11-19 13:36 | NUR ---
Greg arredondo in ED - 11/19/18 at 1435 by ASHUTOSH CALLED VANDANA KISER [phone] AND TOLD HIM THAT HIS GRANDMOTHER IS GOING TO BE DISCHARGED HOME. HE WILL BE HERE IN 15 MINUTES
[2018-11-19 13:38] LABS: POTASSIUM 2.9 MMOL/L (3.5-5.1)
[2018-11-19] MEDS ORDERED: famotidine 20mg tablet PO ONE (13:40)
[2018-11-19] MEDS ORDERED: potassium Cl 20 mEq SR tablet PO STA (13:40)
[2018-11-19] MEDS ORDERED: HYDROcodone/acetaminophen 5mg/325mg tablet PO ONE (13:40)
[2018-11-19] MEDS ORDERED: potassium 10mEq/100ml NS w/LIDOcaine (10mg/bag) IV ONE (13:40)
[2018-11-19 13:44] LABS: URINE HCG NEGATIVE (NEG)
[2018-11-19 13:45] LABS: BLOOD UREA NITROGEN 3 MG/DL (7-18); BUN/CREATININE RATIO 3.6 (6.6-38.0); CREATININE 0.83 MG/DL (0.40-0.90); eGFR 83 ML/MIN
[2018-11-19 13:55] LABS: CLARITY,URINE TURBID (Clear); COLOR,URINE YELLOW (Yellow); GLUCOSE, URINE NEGATIVE (Neg); KETONES,URINE NEGATIVE (Neg); LEUKOCYTE ESTERASE ,URINE NEGATIVE (Neg); NITRITES, URINE NEGATIVE (Neg); OCCULT BLOOD,URINE LARGE (Neg); PH,URINE 5.5 (4.8-8.0); PROTEIN,URINE TRACE mg/dl (Neg); UROBILINOGEN,URINE 0.2 E.U/dL (0.2-1.0)
[2018-11-19 13:57] LABS: UA COLLECTION TYPE CLN CATCH MIDSTREAM
[2018-11-19] MEDS ORDERED: potassium Cl 10 mEq/100mL bag IV ONE ×2 (14:15→14:20)
[2018-11-19 14:22] LABS: BACTERIA,URINE 4+ /HPF (Neg); RBC,URINE NONE SEEN /HPF (0-2); SQUAMOUS EPITHELIAL CELL,UR MANY /LPF (FEW)
[2018-11-19 14:24] LABS: AMORPHOUS URATES 2+; HYALINE CASTS 0-3 /LPF (NEGATIVE)
--- NOTE | 2018-11-19 14:36 | NUR ---
DR PALOMARES AWARE URINE REJECTED FOR CULTURE, PER MD SHE DOES NOT NEED ANOTHER SAMPLE
[2018-11-19] MEDS ORDERED: ONDA8TAB6 PO (14:54)
[2018-11-19] MEDS ORDERED: TRAM50TA2 PO (14:54)
[2018-11-19] MEDS ORDERED: POTA20TA19 PO (14:54)
[2018-11-19] MEDS ORDERED: PANT-47 PO (14:54)
--- NOTE | 2018-11-19 15:05 | NUR ---
PT IS UNABLE TO TOLERATE THE IV POTASSIUM W/O THE LIDOCAINE. DR PALOMARES IS AWARE AND WILL DC PT WITH PO POTASSIUM.
[2018-11-19 15:06] VITALS: BP 101/57
== END 2018-11-19 15:23 | disposition home or self-care (01) ==
LOC: ER 12:43
DX: E87.6 Hypokalemia (principal); K29.00 Acute gastritis without bleeding; G89.29 Other chronic pain; Z90.49 Acquired absence of other specified parts of digestive tract; Z98.890 Other specified postprocedural states; Z91.018 Allergy to other foods; Z79.899 Other long term (current) drug therapy
CPT/HCPCS: 36415; 71045; 80053; 81001; 81025; 83690; 85025; 96361; 96365; 96375; 99284; J1885; J2405; J3480; J7030

== ENCOUNTER 2019-04-03 17:44 | Emergency (ER) | payer OTHER ==
[~2019-04-03] VITALS: Ht 157.5 cm; Wt 76.4 kg
[~2019-04-03 17:44] MED LIST changes: +PANT-47 PO
[2019-04-03 18:56] LABS: BASOPHILS # (AUTO) 0.1 X10'3 (0-0.2); BASOPHILS % (AUTO) 0.5 % (0-1); EOSINOPHILS # (AUTO) 0.2 X10'3 (0-0.9); EOSINOPHILS % (AUTO) 1.3 % (0-6); HEMOGLOBIN 13.9 g/dl (12.0-16.0); LYMPHOCYTES # (AUTO) 1.5 X10'3 (1.1-4.8); LYMPHOCYTES % (AUTO) 10.4 % (21-51); MEAN CORPUSCULAR HEMOGLOBIN 28.5 PG (27.0-31.0); MEAN CORPUSCULAR VOLUME 83.9 FL (78-98); MEAN PLATELET VOLUME 6.9 FL (7.4-10.4); MONOCYTES # (AUTO) 1.1 X10'3 (0-0.9); MONOCYTES % (AUTO) 7.3 % (2-12); NEUTROPHILS # (AUTO) 11.6 X10'3 (1.8-7.7); NEUTROPHILS % (AUTO) 80.5 % (42-75); PLATELET COUNT 376 X10'3 (140-440); RED BLOOD COUNT 4.89 X10'6 (4.20-5.60); WHITE BLOOD COUNT 14.4 X10'3 (4.5-11.0)
[2019-04-03 19:12] LABS: ALANINE AMINOTRANSFERASE 28 U/L (12-78); ALBUMIN 3.4 G/DL (3.4-5.0); ALBUMIN/GLOBULIN RATIO 0.9 (1.1-1.5); ALKALINE PHOSPHATASE 72 IU/L (46-116); ANION GAP 9 (8-16); ASPARTATE AMINO TRANSFERASE 15 U/L (10-37); BILIRUBIN,TOTAL 0.3 MG/DL (0.1-1.0); BLOOD UREA NITROGEN 12 MG/DL (7-18); BUN/CREATININE RATIO 17.4 (6.6-38.0); CALCIUM 8.3 MG/DL (8.5-10.1); CHLORIDE 106 MMOL/L (99-107); CREATININE 0.69 MG/DL (0.40-0.90); GLUCOSE 92 MG/DL (70-104); LIPASE 85 U/L (73-393); POTASSIUM 3.6 MMOL/L (3.5-5.1); SODIUM 145 MMOL/L (135-145); TOTAL CARBON DIOXIDE 30.5 MMOL/L (24-32); TOTAL PROTEIN 7.4 G/DL (6.4-8.2); eGFR > 90 ML/MIN
[2019-04-03 20:43] LABS: URINE HCG NEGATIVE (NEG)
[2019-04-03 20:45] LABS: CLARITY,URINE SLIGHTLY CLOUDY (Clear); COLOR,URINE YELLOW (Yellow); GLUCOSE, URINE NEGATIVE (Neg); KETONES,URINE NEGATIVE (Neg); LEUKOCYTE ESTERASE ,URINE NEGATIVE (Neg); NITRITES, URINE NEGATIVE (Neg); OCCULT BLOOD,URINE NEGATIVE (Neg); PROTEIN,URINE NEGATIVE (Neg); UROBILINOGEN,URINE 0.2 E.U/dL (0.2-1.0)
[2019-04-03 20:46] LABS: UA COLLECTION TYPE CLN CATCH MIDSTREAM
[2019-04-03 20:59] LABS: BACTERIA,URINE 1+ /HPF (Neg); MUCUS STRANDS MANY /LPF (Neg); RBC,URINE NONE SEEN /HPF (0-2); SQUAMOUS EPITHELIAL CELL,UR MANY /LPF (FEW); WBC,URINE 0-4 /HPF (0-4)
[2019-04-03] MEDS ORDERED: ondansetron/PF 4mg/2ml inj IV ONE (21:00)
[2019-04-03] MEDS ORDERED: ketorolac trometh. 30mg/ml inj. IV ONE (21:00)
[2019-04-03] MEDS ORDERED: normal saline 1000ML IV soln IVB ONE (21:00)
[2019-04-03] MEDS ORDERED: ONDA4TAB6 PO (22:57)
[2019-04-03 23:12] VITALS: BP 108/75
== END 2019-04-03 23:15 | disposition home or self-care (01) ==
LOC: ER 17:45
DX: R10.11 Right upper quadrant pain (principal); R19.7 Diarrhea, unspecified; R42 Dizziness and giddiness; R51 Headache; G89.29 Other chronic pain; Z90.49 Acquired absence of other specified parts of digestive tract; Z98.890 Other specified postprocedural states; Z91.018 Allergy to other foods; Z79.899 Other long term (current) drug therapy
CPT/HCPCS: 36415; 76700; 80053; 81001; 81025; 83690; 85025; 96361; 96374; 96375; 99284; J1885; J2405; J7030

== ENCOUNTER 2020-01-21 14:05 | Emergency (ER) | payer MEDICAID ==
[~2020-01-21] VITALS: Ht 157.5 cm; Wt 74.3 kg
[~2020-01-21 14:05] MED LIST changes: +ONDA4TAB6 PO
[2020-01-21 16:43] VITALS: BP 115/80
== END 2020-01-21 16:13 | disposition home or self-care (01) ==
LOC: ER 14:05
DX: R05 Cough (principal); R06.02 Shortness of breath; R51.9 Headache, unspecified; G89.29 Other chronic pain; Z79.899 Other long term (current) drug therapy; Z98.890 Other specified postprocedural states; Z91.018 Allergy to other foods
CPT/HCPCS: 36415; 99281

== ENCOUNTER 2020-08-26 13:15 | Emergency (ER) | payer SELFPAY ==
[~2020-08-26] VITALS: Ht 157.5 cm; Wt 77.0 kg
[2020-08-26 14:02] LABS: BASOPHILS # (AUTO) 0.1 X10'3 (0-0.2); BASOPHILS % (AUTO) 0.5 % (0-1); EOSINOPHILS # (AUTO) 0.2 X10'3 (0-0.9); EOSINOPHILS % (AUTO) 1.5 % (0-6); HEMATOCRIT 40.4 % (35.0-45.0); HEMOGLOBIN 13.9 g/dl (12.0-16.0); LYMPHOCYTES % (AUTO) 6.8 % (21-51); MEAN CORPUSCULAR HEMOGLOBIN 30.8 PG (27.0-31.0); MEAN CORPUSCULAR HGB CONC 34.4 g/dL (33.0-36.5); MEAN CORPUSCULAR VOLUME 89.7 FL (78-98); MEAN PLATELET VOLUME 7.7 FL (7.4-10.4); MONOCYTES # (AUTO) 0.9 X10'3 (0-0.9); MONOCYTES % (AUTO) 6.1 % (2-12); NEUTROPHILS # (AUTO) 12.8 X10'3 (1.8-7.7); NEUTROPHILS % (AUTO) 85.1 % (42-75); PLATELET COUNT 359 X10'3 (140-440); RED CELL DISTRIBUTION WIDTH 14.6 % (11.5-14.5)
[2020-08-26 14:13] LABS: ALANINE AMINOTRANSFERASE 39 U/L (12-78); ALBUMIN 3.4 G/DL (3.4-5.0); ALBUMIN/GLOBULIN RATIO 0.7 (1.1-1.5); ALKALINE PHOSPHATASE 72 IU/L (46-116); ANION GAP 9 (8-16); ASPARTATE AMINO TRANSFERASE 22 U/L (10-37); BILIRUBIN,TOTAL 0.3 MG/DL (0.1-1.0); BLOOD UREA NITROGEN 13 MG/DL (7-18); BUN/CREATININE RATIO 15.1 (6.6-38.0); CALCIUM 9.2 MG/DL (8.5-10.1); CHLORIDE 103 MMOL/L (99-107); CREATININE 0.86 MG/DL (0.40-0.90); GLUCOSE 136 MG/DL (70-104); LIPASE 114 U/L (73-393); POTASSIUM 3.5 MMOL/L (3.5-5.1); SODIUM 136 MMOL/L (135-145); TOTAL CARBON DIOXIDE 24.3 MMOL/L (24-32); eGFR 79 ML/MIN
[2020-08-26 14:21] LABS: CLARITY,URINE CLOUDY (Clear); COLOR,URINE YELLOW (Yellow); GLUCOSE, URINE NEGATIVE (Neg); KETONES,URINE NEGATIVE (Neg); LEUKOCYTE ESTERASE ,URINE TRACE (Neg); NITRITES, URINE NEGATIVE (Neg); OCCULT BLOOD,URINE TRACE-INTACT (Neg); PROTEIN,URINE TRACE mg/dl (Neg); UROBILINOGEN,URINE 0.2 E.U/dL (0.2-1.0)
[2020-08-26 14:24] LABS: URINE HCG NEGATIVE (NEG)
[2020-08-26 14:31] LABS: UA COLLECTION TYPE VOIDED
[2020-08-26 14:34] LABS: BACTERIA,URINE 2+ /HPF (Neg); MUCUS STRANDS MANY /LPF (Neg); RBC,URINE 0-2 /HPF (0-2); SQUAMOUS EPITHELIAL CELL,UR MANY /LPF (FEW); WBC CLUMPS,URINE FEW /HPF (NEGATIVE); WBC,URINE 20-30 /HPF (0-4)
[2020-08-26] MEDS ORDERED: normal saline 1000ML IV soln IVB ONE (14:45)
[2020-08-26] MEDS ORDERED: ketorolac tromethamine 15mg/ml inj. IV ONE (14:45)
[2020-08-26] MEDS ORDERED: proCHLORperazine 10 MG/2 ml inj IV ONE (14:45)
[2020-08-26 16:52] LABS: CLARITY,URINE SLIGHTLY CLOUDY (Clear); COLOR,URINE YELLOW (Yellow); GLUCOSE, URINE NEGATIVE (Neg); KETONES,URINE NEGATIVE (Neg); LEUKOCYTE ESTERASE ,URINE NEGATIVE (Neg); NITRITES, URINE NEGATIVE (Neg); OCCULT BLOOD,URINE TRACE-INTACT (Neg); PH,URINE 5.5 (4.8-8.0); PROTEIN,URINE NEGATIVE (Neg); UROBILINOGEN,URINE 0.2 E.U/dL (0.2-1.0)
[2020-08-26 16:54] LABS: UA COLLECTION TYPE CLN CATCH MIDSTREAM
[2020-08-26 16:59] LABS: BACTERIA,URINE 1+ /HPF (Neg); CAL OXALATE CRYSTALS 3+ /HPF (NEGATIVE); MUCUS STRANDS MODERATE /LPF (Neg); RBC,URINE 0-2 /HPF (0-2); SQUAMOUS EPITHELIAL CELL,UR MODERATE /LPF (FEW); TRANSITIONAL EPI CELLS,URINE FEW /HPF; WBC CLUMPS,URINE FEW /HPF (NEGATIVE)
[2020-08-26] MEDS ORDERED: CIPR500T88 PO (17:21)
[2020-08-26] MEDS ORDERED: METR-159 PO (17:21)
[2020-08-26] MEDS ORDERED: PRED20TA PO (17:22)
--- NOTE | 2020-08-26 17:50 | NUR ---
RELIEVING RN FOR BREAK, PT IS EATING SANDWICH AND DRINKING WATER, GENARO WELL, NO N/V,
[2020-08-26 17:51] VITALS: BP 118/82
== END 2020-08-26 17:55 | disposition home or self-care (01) ==
LOC: ER 13:16
DX: K59.00 Constipation, unspecified (principal); R11.2 Nausea with vomiting, unspecified; R19.7 Diarrhea, unspecified; Z90.89 Acquired absence of other organs; Z98.890 Other specified postprocedural states; Z88.8 Allergy status to other drugs, medicaments and biological substances; Z79.899 Other long term (current) drug therapy
CPT/HCPCS: 36415; 80053; 81001; 81025; 83690; 85025; 96361; 96374; 96375; 99284; J0780; J1885; J7030

== ENCOUNTER 2020-10-22 14:46 | Emergency (ER) | payer MEDICAID ==
[~2020-10-22] VITALS: Ht 157.5 cm; Wt 74.0 kg
[2020-10-22 14:53] VITALS: BP 132/94
[2020-10-22] MEDS ORDERED: cyclobenzaprine 10mg tablet PO ONE (17:05)
[2020-10-22] MEDS ORDERED: CYCL-1 PO (17:16)
== END 2020-10-22 17:36 | disposition home or self-care (01) ==
LOC: ER 14:47
DX: S39.012A Strain of muscle, fascia and tendon of lower back, initial encounter (principal); R53.1 Weakness; R20.0 Anesthesia of skin; G89.29 Other chronic pain; Z90.89 Acquired absence of other organs; Z98.890 Other specified postprocedural states; Z88.8 Allergy status to other drugs, medicaments and biological substances; Z79.2 Long term (current) use of antibiotics; Z79.899 Other long term (current) drug therapy; X50.1XXA Overexertion from prolonged static or awkward postures, initial encounter; Y93.89 Activity, other specified; Y92.89 Other specified places as the place of occurrence of the external cause; Y99.8 Other external cause status
CPT/HCPCS: 99283

== ENCOUNTER 2021-02-11 16:57 | Emergency (ER) | payer SELFPAY ==
[~2021-02-11] VITALS: Ht 170.2 cm; Wt 68.2 kg
[~2021-02-11 16:57] MED LIST changes: +CYCL-1 PO
[2021-02-11] MEDS ORDERED: LORazepam 2 mg/ml vial IM ONE (17:10)
[2021-02-11] MEDS ORDERED: normal saline 1000ML IV soln IVB ONE (17:15)
[2021-02-11] MEDS ORDERED: magnesium 2GM in 50ml NS 50 ML IV ONE (17:15)
[2021-02-11 17:29] LABS: BASOPHILS % (AUTO) 0.1 % (0-1); EOSINOPHILS # (AUTO) 0.1 X10'3 (0-0.9); EOSINOPHILS % (AUTO) 0.5 % (0-6); HEMATOCRIT 40.9 % (35.0-45.0); HEMOGLOBIN 13.7 g/dl (12.0-16.0); LYMPHOCYTES # (AUTO) 0.5 X10'3 (1.1-4.8); LYMPHOCYTES % (AUTO) 2.4 % (21-51); MEAN CORPUSCULAR HEMOGLOBIN 29.1 PG (27.0-31.0); MEAN CORPUSCULAR HGB CONC 33.5 g/dL (33.0-36.5); MEAN CORPUSCULAR VOLUME 86.8 FL (78-98); MEAN PLATELET VOLUME 7.1 FL (7.4-10.4); MONOCYTES % (AUTO) 5.1 % (2-12); NEUTROPHILS # (AUTO) 18.1 X10'3 (1.8-7.7); NEUTROPHILS % (AUTO) 91.9 % (42-75); PLATELET COUNT 477 X10'3 (140-440); RED BLOOD COUNT 4.71 X10'6 (4.20-5.60); RED CELL DISTRIBUTION WIDTH 14.8 % (11.5-14.5); WHITE BLOOD COUNT 19.7 X10'3 (4.5-11.0)
[2021-02-11] MEDS ORDERED: LORazepam 2 mg/ml vial IV ONE (17:35)
[2021-02-11 17:54] LABS: ALANINE AMINOTRANSFERASE 48 U/L (12-78); ALBUMIN 3.6 G/DL (3.4-5.0); ALBUMIN/GLOBULIN RATIO 0.8 (1.1-1.5); ALKALINE PHOSPHATASE 73 IU/L (46-116); ANION GAP 18 (8-16); ASPARTATE AMINO TRANSFERASE 37 U/L (10-37); BILIRUBIN,TOTAL 0.5 MG/DL (0.1-1.0); BLOOD UREA NITROGEN 6 MG/DL (7-18); BUN/CREATININE RATIO 5.3 (6.6-38.0); CALCIUM 8.7 MG/DL (8.5-10.1); CHLORIDE 101 MMOL/L (99-107); CREATININE 1.14 MG/DL (0.40-0.90); GLUCOSE 91 MG/DL (70-104); SODIUM 141 MMOL/L (135-145); TOTAL CARBON DIOXIDE 22.3 MMOL/L (24-32); TOTAL PROTEIN 7.9 G/DL (6.4-8.2); eGFR 56 ML/MIN
[2021-02-11 17:56] LABS: POTASSIUM 2.8 MMOL/L (3.5-5.1)
[2021-02-11] MEDS ORDERED: potassium Cl 10 mEq/100mL bag IV ONE (18:00)
[2021-02-11] MEDS ORDERED: potassium Cl 20 mEq SR tablet PO ONE (18:00)
[2021-02-11 18:51] LABS: HCG SERUM QL NEGATIVE
[2021-02-11 19:03] LABS: ETHANOL < 0.010 GM/DL (0.0-0.010)
[2021-02-11 19:18] LABS: COLOR,URINE YELLOW (Yellow); GLUCOSE, URINE NEGATIVE (Neg); KETONES,URINE TRACE mg/dl (Neg); LEUKOCYTE ESTERASE ,URINE NEGATIVE (Neg); NITRITES, URINE POSITIVE (Neg); OCCULT BLOOD,URINE SMALL (Neg); PH,URINE 5.5 (4.8-8.0); PROTEIN,URINE 100 mg/dl (Neg); UROBILINOGEN,URINE 0.2 E.U/dL (0.2-1.0)
[2021-02-11 19:28] LABS: URINE AMPHETAMINE SCREEN NEGATIVE (Neg); URINE BARBITUATE SCREEN NEGATIVE (Neg); URINE BENZODIAZEPINES SCREEN NEGATIVE (Neg); URINE CANNABINOID SCREEN NEGATIVE (Neg); URINE COCAINE SCREEN NEGATIVE (Neg); URINE METHADONE SCREEN NEGATIVE (Neg); URINE OPIATE SCREEN NEGATIVE (Neg); URINE PHENCYCLIDINE SCREEN NEGATIVE (Neg)
[2021-02-11 19:32] LABS: UA COLLECTION TYPE CLN CATCH MIDSTREAM
[2021-02-11 19:33] LABS: CLARITY,URINE SLIGHTLY CLOUDY (Clear)
[2021-02-11 19:35] LABS: BACTERIA,URINE 2+ /HPF (Neg); FINE GRANULAR CAST 0-3 /LPF (NEGATIVE); MUCUS STRANDS MODERATE /LPF (Neg); SQUAMOUS EPITHELIAL CELL,UR MODERATE /LPF (FEW); TRANSITIONAL EPI CELLS,URINE FEW /HPF
[2021-02-11] MEDS ORDERED: CEPH250T PO (19:48)
[2021-02-11] MEDS ORDERED: CefTRIAXone 2gm/D5W 50ml BAG 50 ML IV ONE (19:50)
[2021-02-11] MEDS ORDERED: DOXY100C76 PO (20:04)
[2021-02-11 21:51] VITALS: BP 116/71
== END 2021-02-11 22:04 | disposition home or self-care (01) ==
LOC: ER 16:58
DX: N39.0 Urinary tract infection, site not specified (principal); E86.0 Dehydration; E87.6 Hypokalemia; K52.9 Noninfective gastroenteritis and colitis, unspecified; R11.2 Nausea with vomiting, unspecified; G89.29 Other chronic pain; Z90.89 Acquired absence of other organs; Z98.890 Other specified postprocedural states; Z88.8 Allergy status to other drugs, medicaments and biological substances; Z79.2 Long term (current) use of antibiotics; Z79.899 Other long term (current) drug therapy
CPT/HCPCS: 36415; 74176; 80053; 80305; 80320; 81001; 84703; 85025; 87077; 87088; 87186; 96365; 96366; 96368; 96375; 99285; J0696; J2060; J3475; J3480; J7030